=== PATIENT | female | born 1935 | race Hispanic/Latino ===

== ENCOUNTER 2016-11-04 18:35 | Emergency (ER) | payer OTHER ==
--- NOTE | 2016-11-04 19:01 | ED MVC/FALL/TRAUMA COMPLAINT ---
History of Present Illness General Chief Complaint: Fall Stated Complaint: BACK PAIN Source: patient, family Exam Limitations: language barrier Vital Signs & Intake/Output Vital Signs & Intake/Output Vital Signs Date Time Temp Pulse Resp B/P Pulse O2 O2 Flow FiO2 Ox Delivery Rate 11/05 0027 98.4 77 20 140/72 98 Room Air 11/04 2139 98.7 67 20 143/64 99 Room Air 11/04 1842 98.2 73 20 198/75 98 Room Air ED Intake and Output 11/05 0000 11/04 1200 Intake Total 0 Output Total Balance 0 Intake, Oral 0 Allergies Coded Allergies: Iodinated Contrast Media - Oral and (ANAPHYLAXIS - CAT SCAN 11/04/16) Penicillins (ANAPHYLAXIS 11/04/16) iodine (ANAPHYLAXIS 11/04/16) Reconcile Medications Clopidogrel Bisulfate (Plavix) 75 MG TABLET 1 TAB PO DAILY BLOOD THINNER ( Reported) Furosemide (Lasix) 40 MG TABLET 1 TAB PO DAILY DIURETIC (Reported) Losartan Potassium (Cozaar) 25 MG TABLET 0.5 TAB PO DAILY HEART (Reported) Spironolactone (Aldactone) 25 MG TABLET 1 TAB PO DAILY DIURETIC (Reported) Ubidecarenone (Co Q-10) (Unknown Strength) CAPSULE (Unknown Dose) PO DAILY SUPPLEMENT (Reported) Triage Nurses Notes Reviewed? yes HPI: 81-year-old female brought from home to room 10 for evaluation of a fall that she sustained in the shower at 1 PM this afternoon. She was able to call her son right away who got her up and put her into bed. This afternoon when her daughter came to see her she was complaining of severe back pain, left side. According to the patient translated to the daughter she was in the shower and became a little bit dizzy. She fell backwards injuring her back hitting her head. She is complaining of severe back pain with inspiration and movement. She hasn't neck pain with movement but not with palpation. She denies any chest pain, shortness of breath or palpitations. She remembers the entire event and did not lose consciousness. Pain is 10 out of 10 at this time. She is from [place] and does not speak any British but she is here just visiting. She has a validation specialist and primary care provider and [facility]. (FRANCISCA TOLENTINO APRN) Past History Medical History Any Pertinent Medical History? see below for history Cardiovascular: CAD, hypertension, hyperlipidemia Surgical History Surgical History: CARDIAC CATH Psychosocial History What is your primary language Austrian Tobacco Use: Never used Family History Hx Contributory? No (FRANCISCA TOLENTINO APRN) Review of Systems Review of Systems Constitutional: Denies: no symptoms. Eyes: Denies: no symptoms. Ears, Nose, Throat, Mouth: Denies: no symptoms. Respiratory: Denies: no symptoms. Cardiovascular: Reports: chest pain (CHEST WALL). Gastrointestinal/Abdominal: Denies: no symptoms. Genitourinary: Denies: no symptoms. Musculoskeletal: Reports: see HPI, back pain. Skin: Denies: no symptoms. Neurological/Psychological: Denies: no symptoms. (FRANCISCA TOLENTINO APRN) Physical Exam Physical Exam General Appearance: well developed/nourished, alert, awake, mild distress Head: atraumatic, normal appearance Eyes: Bilateral: normal appearance, PERRL, EOMI. Ears, Nose, Throat, Mouth: hearing grossly normal, moist mucous membrane, Tympanic normal Neck: normal inspection, supple, paraspinous muscle tender Respiratory: normal breath sounds, no respiratory distress, CHEST WALL TENDERNESS Cardiovascular: regular rate/rhythm Peripheral Pulses: 2+ radial (R), 2+ radial (L) Gastrointestinal: normal bowel sounds, soft, non-tender Back: normal inspection (see diagram), ecchymosis (LEFT SIDE) Extremities: normal range of motion, pelvis stable Neurologic/Psych: no motor/sensory deficits, awake, alert, oriented x 3, normal mood/affect Skin: intact, normal color, warm/dry Diagram Body: 1) Ecchymosis Core Measures ACS in differential dx? No Severe Sepsis Present: No Septic Shock Present: No (FRANCISCA TOLENTINO APRN) Progress Differential Diagnosis: C/T/L spine injury, ICH, PNEUMOTHORAX, RIB CONTUSION/ FRACTURE Plan of Care: Orders Procedure Date/time Status Saline Lock 11/04 1913 Active MISTAKE 11/04 1913 Active TROPONIN LEVEL 11/04 1913 Complete COMPREHENSIVE METABOLIC PANEL 11/04 1913 Complete CBC WITHOUT DIFFERENTIAL 11/04 1913 Complete EKG 11/04 190 Active Current Medications Sig/Toribio Start time Last Medication Dose Stop Time Status Admin Morphine Sulfate 2 MG ONCE ONE 11/04 2244 CAN (Morphine) 11/04 2245 Laboratory Tests 11/04/162149: Anion Gap 12, Estimated GFR 53 L, BUN/Creatinine Ratio 32.0 H, Glucose 120 H, Calcium 9.1, Total Bilirubin 0.7, AST 24, ALT 27, Alkaline Phosphatase 107, Troponin I < 0.01, Total Protein 7.1, Albumin 4.0, Globulin 3.1, Albumin/ Globulin Ratio 1.3 11/04/162109: CBC w Diff NO MAN DIFF REQ, RBC 4.35, MCV 89.4, MCH 30.6, RDW 13.0, MPV 9.4, Gran % 83.0 H, Lymphocytes % 12.3 L, Monocytes % 4.1, Eosinophils % 0.2, Basophils % 0.4, Absolute Granulocytes 7.5 H, Absolute Lymphocytes 1.1 L, Absolute Monocytes 0.4, Absolute Eosinophils 0, Absolute Basophils 0, PUBS MCHC 34.3 Initial ED EKG: SINUS RHYTHM WITH NONSPECIFIC st-t WAVE CHANGES, SLIGHT INTERVENTRICULAR CONDUCTION DELAY NO OLD ONE TO COMPARE Hand-Off Endorsed To: BERNARDA PERALTA Endorsed Time: 2108 Pending: CT, labs, other (orthostatic vital signs) (RANDA CAMPOS,FRANCISCA) Diagnostic Imaging: Viewed by Me: CT Scan. Discussed w/RAD: CT Scan. Rhythm Strip: normal sinus rhythm Comments: PATIENT: JAC ALLEN PRESENT AGE: 81 PATIENT ACCOUNT NO: [id number] : 35 LOCATION: [facility] ORDERING PHYSICIAN: FRANCISCA TOLENTINO APRN SERVICE DATE: 11/04/16 EXAM TYPE: CAT - CT CERV SPINE WO IV CONTRAST; CT HEAD WO IV CONTRAST EXAMINATION: CT HEAD AND CERVICAL SPINE WITHOUT CONTRAST CLINICAL INFORMATION: Headache and neck pain. Status post fall. COMPARISON: None. TECHNIQUE: Contiguous axial imaging was performed from the thoracic inlet to the vertex without intravenous administration of contrast. 2-D coronal and sagittal reformatted images of the cervical spine were obtained at the acquisition workstation. Images of the brain were repeated secondary to motion abnormality. DLP: 1383 mGy-cm. FINDINGS: Head: Noncontrast CT imaging of the brain demonstrates focal regions of encephalomalacia within the right frontal, right parietal and right temporal lobes. These regions of encephalomalacia are visualized subjacent to the right frontoparietal craniotomy and may reflect chronic ischemia versus sequela of prior trauma or intracranial hemorrhage. There is no acute intracranial abnormality. No acute intracranial hemorrhage, mass or mass effect or abnormal extra-axial fluid collections are identified. 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 The ventricles are otherwise normal in size, without hydrocephalus. The density within the dural venous sinuses is within normal limits. The ventricles are normal in size, without hydrocephalus. There are no focal areas of hypoattenuation within a vascular distribution to suggest acute transcortical ischemia. The basilar cisterns are patent. As noted above, there are postsurgical changes related to prior right frontal parietal craniotomy. No acute calvarial abnormality is identified. Incidental note is made of hyperostosis frontalis interna. Soft tissues appear unremarkable. The imaged paranasal sinuses and mastoid air cells are well aerated. Cervical spine: Demineralization of the visualized bones. Mild multilevel degenerative changes of the cervical spine, most significant at C5-C6. No acute cervical spine fractures or subluxations. Vertebral body heights are preserved. The atlantoaxial and craniocervical junctions are intact. Prevertebral soft tissues are within normal limits. The included bilateral lung apices are clear. IMPRESSION: 1. No acute intracranial abnormality. Focal regions of encephalomalacia within the right frontal, right parietal and right temporal lobes. 2. No acute cervical spine fracture or subluxation. DICTATED BY: PRSAHANT HARDY MD DATE/TIME DICTATED:11/04/162039 [employer] CAR:CATRACHITA PATIENT: JAC ALLEN PRESENT AGE: 81 PATIENT ACCOUNT NO: [id number] : 35 LOCATION: [facility] ORDERING PHYSICIAN: FRANCISCA TOLENTINO APRN SERVICE DATE: 11/04/16 EXAM TYPE: CAT - CT CHEST WO IV CONTRAST EXAMINATION: CT CHEST WITHOUT CONTRAST CLINICAL INFORMATION: An 81-year-old female presented with back pain with inspiration and shortness of breath. Left-sided ecchymosis. Suspected pneumonia and/or fracture. COMPARISON: None. TECHNIQUE: Multidetector volumetric CT imaging of the chest was done. Axial MIP volume rendering provided. Sagittal and coronal reformatted images were obtained. DLP: 285.11 mGy-cm. FINDINGS: MANAGER UI: Unremarkable. LUNGS: Hypoventilatory changes are present at both lung bases (left greater than right). The remainder of the lung langford bilaterally appear clear. The tracheobronchial tree appeared patent. MEDIASTINUM: Atherosclerotic disease is noted within the aorta and its branches including coronary arterial calcifications. There is mild cardiomegaly present. There are no pathologically enlarged mediastinal, hilar lymphadenopathy present. PLEURA: There is trace amount of left-sided pleural effusion present, may represent hemothorax, adjacent to the minimally displaced fracture involving the posteromedial aspect of the left 9th, 10th ribs. There is no pneumothorax present. AXILLA: No lymphadenopathy. UPPER ABDOMEN: Evidence of soft tissue increased density noted within the left lower posterior, medial chest wall including part of the left upper abdomen, most consistent with soft tissue contusion, hemorrhage, if this patient has any recent history of trauma. The visualized included part of the spleen appear intact on this noncontrast study. OSSEOUS STRUCTURES: Minimally displaced fracture is present involving the left 9th, 10th ribs. The remainder of the ribs appear intact. Mild multilevel degenerative spondylosis related changes are noted in the spine without any compression fracture. IMPRESSION: 1. Minimally displaced fractures are noted involving the posteromedial aspect of the left 9th, 10th ribs. 2. Trace amount of underlying left hemithoracic pleural effusion is present, most consistent with tiny hemothorax. No evidence of any pneumothorax present. 3. Hypoventilatory changes at both lung bases. 4. Likely soft tissue contusion, hemorrhage involving the included visualized part of the left lower posterior chest wall and included upper abdomen. DICTATED BY: SUSI MORTON MD DATE/TIME DICTATED:11/04/162044 [employer] CAR:CATRACHITA DATE/TIME TRANSCRIBED:11/04/162044 Accepted signout at change of shift, reevaluate the patient with Dr. Gallo. She is having some pain but otherwise comfortable. Initially she wanted something for pain but then she recanted. She has 2 minimally displaced rib fractures on the left side with a very small hemothorax. A call was placed to Dr. Gracia at 9:30pm. 11/05/2016 12:16:[address] Caruso, covering for thoracic surgery , he does not have privileges here at our hospital and recommends transfer to a trauma facility. Discussed this with patient and family were in agreement with plan. I called the y access line for transfer and spoke to the trauma surgeon Dr. mcgraw Who recommended the patient be transferred to the [place] emergency department for a trauma consult. (BERNARDA PERALTA) Departure Departure Time of Disposition: 2107 Condition: Stable Referrals: PATIENT HAS NO PRIMARY CARE DR (PCP/Family) Departure Forms: Customer Survey General Discharge Information (FRANCISCA TOLENTINO APRN) Departure Disposition: [facility] (ACUTE) Clinical Impression Primary Impression: Ribs, multiple fractures Secondary Impressions: Back pain Qualifiers: Back pain location: thoracic back pain Chronicity: acute Back pain laterality: left Qualified Code: M54.6 - Pain in thoracic spine Hemothorax on left (BERNARDA PERALTA) PA/PATCH SETTER Co-Sign Statement Statement: ED Attending supervision documentation- [x] I saw and evaluated the patient. I have also reviewed all the pertinent lab results and diagnostic results. I agree with the findings and the plan of care as documented in the PA's/PATCH SETTER's documentation. [] I have reviewed the ED Record and agree with the PA's/PATCH SETTER's documentation. [] Additions or exceptions (if any) to the PAs/PATCH SETTER's note and plan are summarized below: [] (BRO LINARES,NARESH Avila)
[2016-11-04] MEDS ORDERED: COZAAR25 M1 PO (19:47)
[2016-11-04] MEDS ORDERED: CO Q-10100 MG PO (19:48)
[2016-11-04] MEDS ORDERED: PLAVIX75 M1 PO (19:48)
[2016-11-04] MEDS ORDERED: ALDACTONE25 MG PO (19:51)
[2016-11-04] MEDS ORDERED: LASIX40 M1 PO (19:52)
--- NOTE | 2016-11-04 20:59 | CT SCAN REPORT ---
EXAMINATION: CT HEAD AND CERVICAL SPINE WITHOUT CONTRAST CLINICAL INFORMATION: Headache and neck pain. Status post fall. COMPARISON: None. TECHNIQUE: Contiguous axial imaging was performed from the thoracic inlet to the vertex without intravenous administration of contrast. 2-D coronal and sagittal reformatted images of the cervical spine were obtained at the acquisition workstation. Images of the brain were repeated secondary to motion abnormality. DLP: 1383 mGy-cm. FINDINGS: Head: Noncontrast CT imaging of the brain demonstrates focal regions of encephalomalacia within the right frontal, right parietal and right temporal lobes. These regions of encephalomalacia are visualized subjacent to the right frontoparietal craniotomy and may reflect chronic ischemia versus sequela of prior trauma or intracranial hemorrhage. There is no acute intracranial abnormality. No acute intracranial hemorrhage, mass or mass effect or abnormal extra-axial fluid collections are identified. 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 The ventricles are otherwise normal in size, without hydrocephalus. The density within the dural venous sinuses is within normal limits. The ventricles are normal in size, without hydrocephalus. There are no focal areas of hypoattenuation within a vascular distribution to suggest acute transcortical ischemia. The basilar cisterns are patent. As noted above, there are postsurgical changes related to prior right frontal parietal craniotomy. No acute calvarial abnormality is identified. Incidental note is made of hyperostosis frontalis interna. Soft tissues appear unremarkable. The imaged paranasal sinuses and mastoid air cells are well aerated. Cervical spine: Demineralization of the visualized bones. Mild multilevel degenerative changes of the cervical spine, most significant at C5-C6. No acute cervical spine fractures or subluxations. Vertebral body heights are preserved. The atlantoaxial and craniocervical junctions are intact. Prevertebral soft tissues are within normal limits. The included bilateral lung apices are clear. IMPRESSION: 1. No acute intracranial abnormality. Focal regions of encephalomalacia within the right frontal, right parietal and right temporal lobes. 2. No acute cervical spine fracture or subluxation.
[2016-11-04 21:19] LABS: ABSOLUTE BASOPHIL COUNT 0 /CUMM (0.0-0.2); ABSOLUTE EOSINOPHIL COUNT 0 /CUMM (0.0-0.7); ABSOLUTE GRANULOCYTE CT 7.5 /CUMM (1.4-6.5); ABSOLUTE LYMPH COUNT 1.1 /CUMM (1.2-3.4); ABSOLUTE MONOCYTE COUNT 0.4 /CUMM (0.10-0.60); BASOPHIL % 0.4 % (0.0-2.0); EOSINOPHIL % 0.2 % (0-5); HEMATOCRIT 38.9 % (37-47); MEAN CORPUSCULAR HGB 30.6 PG (27.0-31.0); MEAN CORPUSCULAR HGB CONC 34.3 G/DL (33.0-37.0); MEAN CORPUSCULAR VOLUME 89.4 FL (81.0-99.0); MEAN PLATELET VOLUME 9.4 FL (7.4-10.4); PLATELET COUNT 212 /CUMM (130-400); RED BLOOD CELL CT 4.35 /CUMM (4.20-5.40)
--- NOTE | 2016-11-04 21:21 | CT SCAN REPORT ---
EXAMINATION: CT CHEST WITHOUT CONTRAST CLINICAL INFORMATION: An 81-year-old female presented with back pain with inspiration and shortness of breath. Left-sided ecchymosis. Suspected pneumonia and/or fracture. COMPARISON: None. TECHNIQUE: Multidetector volumetric CT imaging of the chest was done. Axial MIP volume rendering provided. Sagittal and coronal reformatted images were obtained. DLP: 285.11 mGy-cm. FINDINGS: MAINTENANCE SHOP TECHNICIAN: Unremarkable. LUNGS: Hypoventilatory changes are present at both lung bases (left greater than right). The remainder of the lung langford bilaterally appear clear. The tracheobronchial tree appeared patent. MEDIASTINUM: Atherosclerotic disease is noted within the aorta and its branches including coronary arterial calcifications. There is mild cardiomegaly present. There are no pathologically enlarged mediastinal, hilar lymphadenopathy present. PLEURA: There is trace amount of left-sided pleural effusion present, may represent hemothorax, adjacent to the minimally displaced fracture involving the posteromedial aspect of the left 9th, 10th ribs. There is no pneumothorax present. AXILLA: No lymphadenopathy. UPPER ABDOMEN: Evidence of soft tissue increased density noted within the left lower posterior, medial chest wall including part of the left upper abdomen, most consistent with soft tissue contusion, hemorrhage, if this patient has any recent history of trauma. The visualized included part of the spleen appear intact on this noncontrast study. OSSEOUS STRUCTURES: Minimally displaced fracture is present involving the left 9th, 10th ribs. The remainder of the ribs appear intact. Mild multilevel degenerative spondylosis related changes are noted in the spine without any compression fracture. IMPRESSION: 1. Minimally displaced fractures are noted involving the posteromedial aspect of the left 9th, 10th ribs. 2. Trace amount of underlying left hemithoracic pleural effusion is present, most consistent with tiny hemothorax. No evidence of any pneumothorax present. 3. Hypoventilatory changes at both lung bases. 4. Likely soft tissue contusion, hemorrhage involving the included visualized part of the left lower posterior chest wall and included upper abdomen.
[2016-11-05 00:27] VITALS: BP 140/72
== END 2016-11-05 00:48 | disposition short-term general hospital (02) ==
LOC: ERH 18:35
PROVIDERS: Nurse Practitioner Family
DX: S22.42XA Multiple fractures of ribs, left side, initial encounter for closed fracture (principal); M54.9 Dorsalgia, unspecified; S27.1XXA Traumatic hemothorax, initial encounter; W18.2XXA Fall in (into) shower or empty bathtub, initial encounter
CPT/HCPCS: 93005; 93010